=== PATIENT | female | born 2005 | race Caucasian/White ===

== ENCOUNTER → 2024-03-25 | Outpatient (CLI) | payer BC, SELFPAY ==
[2024-03-27 12:09] LABS: QNTFERON TB Mitogen Value > 10.00 IU/mL (.); QNTFERON TB Nil Value 0.03 IU/mL (.); QNTFERON TB1+ Ag Value 0.03 IU/mL (.); QNTFERON TB2+ Ag Value 0.03 IU/mL (.); QNTIFERON TB Positive Criteria Negative (Negative)
== END | disposition home or self-care (01) ==
LOC: MTLAB 13:50
PROVIDERS: PCP Family Medicine; Referring Provider Family Medicine; Visit Provider Family Medicine
DX: Z11.1 Encounter for screening for respiratory tuberculosis (principal)
CPT/HCPCS: 36415; 86480

== ENCOUNTER → 2025-09-20 | Outpatient (CLI) | payer BC, SELFPAY ==
--- NOTE | 2025-09-20 15:56 | RAD_ITS ---
PROCEDURE: RIBS UNI MIN 3V W/PA CHEST 09/20/2025 REASON FOR EXAM: FALL. PAIN OVER POSTERIO 9TH AND 10TH RIB ON R TECHNIQUE: Procedure Code: RADRIB Modality: DX Procedure: RIBS UNI MIN 3V W/PA CHEST FINDINGS: The lungs are clear. The cardiac silhouette appears unremarkable. No displaced rib fracture is identified. RAD/Ribs Uni Min 3V w/PA Chest IMPRESSION: As above. Reading Location: [id number]
== END | disposition home or self-care (01) ==
LOC: MTRAD 15:55
PROVIDERS: PCP Family Medicine; Referring Provider Family Medicine; Visit Provider Family Medicine
DX: R07.89 Other chest pain (principal)
CPT/HCPCS: 71101